=== PATIENT | female | born 1955 | race Caucasian/White ===

== ENCOUNTER 2019-09-16 07:08 | Day surgery (SDC) | payer OTHER ==
[2019-09-16] MEDS ORDERED: NA CHLORIDE 0.9% 1,000 ML ONE (09:00)
[2019-09-16] MEDS ORDERED: LIDOCAINE 1% MPF 5 ML VIAL ONE (10:51)
[2019-09-16] MEDS ORDERED: PROPOFOL 200 MG/20 ML VIAL IV ONE ×2 (10:51→10:52)
--- NOTE | 2019-09-16 11:28 | ENDO RPT ---
[address], [address] COLONOSCOPY PROCEDURE REPORT EXAM DATE: 09/16/2019 PATIENT NAME: Hue Schulz MR #: [id number] BIRTHDATE: 1955 ATTENDING: [address] STATUS: outpatient MEDIATOR: Ken Cochran RN and Cici Zhong RN INDICATIONS: The patient is a 64 yr old Female here for a colonoscopy due to colon cancer screening and family history of colon polyps PROCEDURE PERFORMED: Colonoscopy with biopsy - cold polypectomy MEDICATIONS: Per Anesthesia. ESTIMATED BLOOD LOSS: None CONSENT: The patient understands the risks and benefits of the procedure and understands that these risks include, but are not limited to: sedation, allergic reaction, infection, perforation and/or bleeding. Alternative means of evaluation and treatment include, among others: physical exam, x-rays, and/or surgical intervention. The patient elects to proceed with this endoscopic procedure. DESCRIPTION OF PROCEDURE: During intra-op preparation period all mechanical medical equipment was checked for proper function. Hand hygiene and appropriate measures for infection prevention was taken. Procedure, possible complications, alternatives including, but not limited to possibility of bleeding, perforation, tear, infection, sepsis, need for surgery, need for blood transfusion, were explained to the patient. After the risks, benefits and alternatives of the procedure were thoroughly explained, Informed consent was verified, confirmed and timeout was successfully executed by the treatment team. The patient was placed in the left lateral position. A digital rectal exam was performed and revealed no abnormalities of the rectum. After appropriate level of anesthesia, the scope was passed. The EC-[id number] ([id number]) and EC-[id number] ([id number]) endoscope was introduced through the anus and advanced to the terminal ileum which was intubated for a short distance. The quality of the prep was fair. The instrument was then slowly withdrawn as the colon was fully examined. Scope withdrawal time was 7 minutes. COLON FINDINGS: A smooth sessile polyp measuring 2 mm in size was found at the cecum. A polypectomy was performed with cold forceps. A smooth sessile polyp measuring 4 mm in size was found in the proximal transverse colon. A polypectomy was performed with cold forceps. Mild diverticulosis was noted in the sigmoid colon. No bleeding was noted from the diverticulosis. Small internal hemorrhoids were found. Retroflexed views revealed small hemorrhoids. The scope was then completely withdrawn from the patient and the procedure terminated. ADVERSE EVENTS: There were no complications. IMPRESSIONS: 1. 2 mm sessile polyp in the cecum; polypectomy was performed with cold forceps 2. 4 mm sessile polyp in the proximal transverse colon; polypectomy was performed with cold forceps 3. Mild diverticulosis in the sigmoid colon 4. Small internal hemorrhoids 5. Intubation to terminal ileum RECOMMENDATIONS: 1. await biopsy results 2. avoid NSAIDS for 2 weeks 3. fiber rich diet RECALL: Return in 3 year(s) for Colonoscopy. [address] eSigned: [address] 09/16/2019 11:28 AM cc: Jeremiah Bobo M.D. CPT CODES: ICD9 CODES: 211.3 Benign neoplasm of colon PATIENT NAME: Hue Schulz MR#: [id number]
[2019-09-16 14:16] VITALS: O2SAT 99
[2019-09-16 14:23] VITALS: BP 146/81; TEMP 97.2
== END 2019-09-16 12:08 | disposition home or self-care (01) ==
LOC: OR 07:08
PROVIDERS: ATTEND Internal Medicine Gastroenterology
PROC: 0DBL8ZX Excision of Transverse Colon, Via Natural or Artificial Opening Endoscopic, Diagnostic (ICD-10-PCS; 2019-09-16)
PROC: 0DBH8ZX Excision of Cecum, Via Natural or Artificial Opening Endoscopic, Diagnostic (ICD-10-PCS; principal; 2019-09-16 11:00)
DX: Z12.11 Encounter for screening for malignant neoplasm of colon (principal); K63.5 Polyp of colon; D12.0 Benign neoplasm of cecum; K57.90 Diverticulosis of intestine, part unspecified, without perforation or abscess without bleeding; K64.8 Other hemorrhoids; E11.9 Type 2 diabetes mellitus without complications; I10 Essential (primary) hypertension; J45.909 Unspecified asthma, uncomplicated; K21.9 Gastro-esophageal reflux disease without esophagitis; E66.01 Morbid (severe) obesity due to excess calories; Z90.49 Acquired absence of other specified parts of digestive tract; Z87.891 Personal history of nicotine dependence; Z88.0 Allergy status to penicillin; Z88.2 Allergy status to sulfonamides; Z91.030 Bee allergy status; Z83.71 Family history of colonic polyps; Z80.1 Family history of malignant neoplasm of trachea, bronchus and lung
CPT/HCPCS: 45380; 82947; 88305; J2704 ×2; J7030